=== PATIENT | female | born 1995 | race African-American/Black ===

== ENCOUNTER 2020-02-18 19:51 | Inpatient (IN) | payer OTHER ==
[~2020-02-18] VITALS: Ht 160 cm; Wt 90.3 kg
[2020-02-18] MEDS ORDERED: IBUPROFEN 600MG TABLET PO STA (21:24)
[2020-02-18] MEDS ORDERED: ACETAMINOPHEN 325MG TABLET PO STA (21:24)
[2020-02-18] MEDS ORDERED: CEFTRIAXONE 1 G PREMIX 50 ML IV ONE (22:45)
[2020-02-18] MEDS ORDERED: AZITHROMYCIN 500 MG in DEXT 5% WATER 250 ML IV ONE (22:45)
[2020-02-18 22:59] LABS: BASOPHILS % 0.4 % (0.0-2.0); EOSINOPHILS % 0.2 % (0.0-5.0); HEMATOCRIT. 31.1 % (36.0-48.0); HEMOGLOBIN. 10.2 g/dL (12.0-16.0); LYMPHOCYTES % 12.6 % (20.0-50.0); MEAN CORPUSCULAR HEMOGLOBIN 27.1 pg (28.0-32.0); MEAN CORPUSCULAR VOLUME 82.6 fL (81.0-99.0); MEAN PLATELET VOLUME 9.4 fl (7.4-10.4); MONOCYTES % 6.7 % (2.0-8.0); NEUTROPHILS % 80.1 % (40.0-76.0); PLATELET 207 x1000/uL (130-400); RED BLOOD CELL COUNT 3.76 mill/uL (4.2-5.4); RED CELL DISTRIBUTION WIDTH 16.4 % (11.6-14.6)
[2020-02-18 23:02] LABS: CHLORIDE 108 mEq/L (98-107)
[2020-02-18 23:06] LABS: PARTIAL THROMBOPLASTIN TIME 23.1 sec (23.4-31.0); PROTHROMBIN TIME 10.1 sec (9.6-11.0)
[2020-02-18 23:13] LABS: HCG SCREEN NEGATIVE
[2020-02-19] MEDS ORDERED: IOHEXOL-350 100 ML BOTTLE ONE (00:12)
[2020-02-19] MEDS ORDERED: ENOXAPARIN 100MG/ML SYR SUBCUT ONE (00:15)
[2020-02-19 03:25] LABS: CLARITY URINE CLEAR (CLEAR); COLOR URINE YELLOW (YELLOW); KETONES URINE NEGATIVE (NEGATIVE); LEUKOCYTE ESTERASE URINE NEGATIVE (NEGATIVE); NITRITE URINE NEGATIVE (NEGATIVE); OCCULT BLOOD URINE 3+ (NEGATIVE); PH URINE 5.5 (4.5-8.0); PROTEIN URINE 2+ (NEGATIVE); SPECIFIC GRAVITY URINE 1.053 (1.005-1.030); UROBILINOGEN URINE 0.2 E.U./dL (0.2-1.0)
[2020-02-19 08:45] VITALS: BP 135/86
[2020-02-19 09:00] VITALS: BP 135/86
[2020-02-19] MEDS ORDERED: XAR15 MT (10:31)
[2020-02-19] MEDS ORDERED: P50 MT (10:31)
[2020-02-19 12:00] VITALS: BP 128/79
[2020-02-19] MEDS ORDERED: ONDANSETRON HCL 4MG/2ML INJ IV PRN (14:00)
[2020-02-19] MEDS ORDERED: HYDROCODONE/ACETAMINOPHEN 5/325MG TABLET PO PRN (14:00)
[2020-02-19] MEDS ORDERED: DOCUSATE SODIUM 100MG CAPSULE PO PRN (14:00)
[2020-02-19] MEDS ORDERED: LORAZEPAM 0.5MG TABLET PO PRN (14:00)
[2020-02-19] MEDS ORDERED: GUAIFENESIN 200MG/10ML SUGAR FREE UDC PO PRN (14:00)
[2020-02-19] MEDS ORDERED: ACETAMINOPHEN 325MG TABLET PO PRN (14:00)
[2020-02-19 16:00] VITALS: BP 151/100
[2020-02-19] MEDS ORDERED: ALBUTEROL 6.7GM HFA INHALER ORI PRN (16:00)
[2020-02-19] MEDS ORDERED: CEFTRIAXONE 1,000 MG in DEXTROSE 5% WATER 50 ML IV SCH (18:00)
[2020-02-19] MEDS: RIVAROXABAN 20 MG TABLET PO SCH (18:57)
[2020-02-19] MEDS: METHYLPREDNISOLONE SOD SUCC 40 MG/ML VIAL IV SCH ×2 (18:57→23:40)
[2020-02-19 20:00] VITALS: BP 148/107
[2020-02-19] MEDS ORDERED: CEFTRIAXONE 1 G PREMIX 50 ML IV SCH (23:00)
[2020-02-19] MEDS: CLONIDINE 0.1MG TABLET PO PRN (23:39)
[2020-02-20] VITALS: BP 154/101
[2020-02-20] MEDS ORDERED: AZITHROMYCIN 500 MG in DEXT 5% WATER 250 ML IV SCH ×2
[2020-02-20 04:00] VITALS: BP 126/90
[2020-02-20 08:00] VITALS: BP 138/78
[2020-02-20 08:27] LABS: CHLORIDE 107 mEq/L (98-107)
[2020-02-20 08:37] LABS: HEMATOCRIT. 30.8 % (36.0-48.0); HEMOGLOBIN. 10.3 g/dL (12.0-16.0); MEAN CORPUSCULAR HEMOGLOBIN 27.4 pg (28.0-32.0); MEAN PLATELET VOLUME 9.2 fl (7.4-10.4); PLATELET 224 x1000/uL (130-400); RED BLOOD CELL COUNT 3.75 mill/uL (4.2-5.4); RED CELL DISTRIBUTION WIDTH 16.2 % (11.6-14.6)
[2020-02-20] MEDS: METHYLPREDNISOLONE SOD SUCC 40 MG/ML VIAL IV SCH ×2 (09:50→18:21)
[2020-02-20 12:00] VITALS: BP 148/99
[2020-02-20 14:00] VITALS: BP 134/69
[2020-02-20 15:45] LABS: PLATELET ESTIMATE NORMAL
[2020-02-20] MEDS: FUROSEMIDE 20MG/2ML VIAL IVP SCH (18:21)
[2020-02-20] MEDS: RIVAROXABAN 20 MG TABLET PO SCH (18:23)
[2020-02-20 20:00] VITALS: BP 152/84
[2020-02-20] MEDS: FLUTICASONE PROPIONATE 50MCG/SPRAY BOTTLE BOTHNSTRLS SCH (21:24)
[2020-02-20] MEDS ORDERED: METHOTREXATE SODIUM 2 . 5MG TABLET PO SCH (22:30)
[2020-02-20] MEDS ORDERED: GABAPENTIN 300MG CAPSULE PO SCH (22:30)
[2020-02-20] MEDS: CELECOXIB 200MG CAPSULE PO SCH (22:33)
[2020-02-20] MEDS: HYDROXYCHLOROQUINE SULFATE 200MG TABLET PO SCH (22:34)
[2020-02-20] MEDS: PREGABALIN 75MG CAPSULE PO SCH (22:34)
[2020-02-21] VITALS: BP 168/93
[2020-02-21] MEDS: CLONIDINE 0.1MG TABLET PO PRN (00:49)
[2020-02-21 01:00] VITALS: BP 135/74
[2020-02-21] MEDS: IPRATROPIUM/ALBUTEROL 0.5-3(2.5)MG/3ML NEB HHN SCH ×3 (01:28→14:43)
[2020-02-21 04:00] VITALS: BP 115/81
[2020-02-21 07:29] LABS: HEMATOCRIT. 32.8 % (36.0-48.0); HEMOGLOBIN. 10.8 g/dL (12.0-16.0); MEAN CORPUSCULAR HEMOGLOBIN 27.1 pg (28.0-32.0); MEAN CORPUSCULAR VOLUME 82.2 fL (81.0-99.0); MEAN PLATELET VOLUME 9.4 fl (7.4-10.4); PLATELET 267 x1000/uL (130-400); RED CELL DISTRIBUTION WIDTH 16.1 % (11.6-14.6)
[2020-02-21 07:47] LABS: CHLORIDE 105 mEq/L (98-107)
[2020-02-21 07:58] LABS: CREATINE KINASE 11 IU/L (26-192); T4 FREE 1.05 ng/dL (0.76-1.46)
[2020-02-21 08:00] VITALS: BP 135/92
[2020-02-21] MEDS ORDERED: FOLIC ACID 1MG TABLET PO SCH (09:00)
[2020-02-21] MEDS ORDERED: PREDNISONE 20MG TABLET PO SCH (09:00)
[2020-02-21] MEDS ORDERED: METHYLPREDNISOLONE SOD SUCC 40 MG/ML VIAL IV SCH (09:00)
[2020-02-21] MEDS ORDERED: DULOXETINE HCL 30MG DR CAPSULE PO SCH (09:00)
[2020-02-21] MEDS: HYDROXYCHLOROQUINE SULFATE 200MG TABLET PO SCH (09:14)
[2020-02-21] MEDS: PREGABALIN 75MG CAPSULE PO SCH (09:14)
[2020-02-21] MEDS: FLUTICASONE PROPIONATE 50MCG/SPRAY BOTTLE BOTHNSTRLS SCH (09:15)
[2020-02-21] MEDS: METHOTREXATE SODIUM 2 . 5MG TABLET PO SCH ×2 (09:15→12:40)
[2020-02-21] MEDS: CELECOXIB 200MG CAPSULE PO SCH (09:16)
[2020-02-21] MEDS: FUROSEMIDE 20MG/2ML VIAL IVP SCH (09:16)
[2020-02-21] MEDS ORDERED: AMLODIPINE 2.5MG TABLET PO SCH (10:45)
[2020-02-21] MEDS ORDERED: METH2.5T MT (11:57)
[2020-02-21] MEDS ORDERED: DULO30CA2 PO (11:57)
[2020-02-21] MEDS ORDERED: PREG75CA PO (11:57)
[2020-02-21] MEDS ORDERED: P20 PO (11:57)
[2020-02-21] MEDS ORDERED: FURO20TA4 MT (11:57)
[2020-02-21] MEDS ORDERED: HYDR200T35 PO (11:57)
[2020-02-21] MEDS ORDERED: AMLO2.5T45 PO (11:57)
[2020-02-21] MEDS ORDERED: FOLI-43 PO (11:57)
[2020-02-21 12:00] VITALS: BP 147/87
[2020-02-21 12:12] VITALS: BP 147/87
[2020-02-21 17:35] LABS: PLATELET ESTIMATE NORMAL
[2020-02-22 09:09] LABS: G6PD RBC 3.98 x10E6/uL (3.77-5.28)
[2020-02-22 15:08] LABS: ANTI-DNA DOUBLE STRANDED QUANT > 300 IU/mL (0-9); RNP ANTIBODY 0.4 AI (0.0-0.9); SMITH ANTIBODY 2.7 AI (0.0-0.9)
[2020-02-22 17:10] LABS: G6PD QUANTITATIVE 233 (146-376)
[2020-02-23 17:07] LABS: ALDOLASE 6.4 U/L (3.3-10.3); ANGIOTENSION CONVERTING ENZYME 38 U/L (14-82)
[2020-02-23 19:11] LABS: ANTI-CARDIOLIPIN AB IGG 15 GPL U/mL (0-14); ANTI-CARDIOLIPIN AB IGM 14 MPL U/mL (0-12)
[2020-02-24 18:15] LABS: ANTI-MYELOPEROXIDASE AB < 9.0 U/mL (0.0-9.0); ANTI-PROTEINASE 3 ABS < 3.5 U/mL (0.0-3.5)
[2020-02-25 06:10] LABS: DRVVT LA 113.6 sec (0.0-47.0); DRVVT MIX LA 78.5 sec (0.0-47.0); HEXAGONAL PHASE PHOSPHOLIPID 30 sec (0-11); LUPUS ANTICOAG INTERPRETATION Comment: (.); PTT-LA MIX 74.4 sec (0.0-48.9)
[2020-02-25 10:06] LABS: GLOMERULAR BASEMENT MEMB AB 5 units (0-20)
[2020-02-26 15:06] LABS: ANA HOMOGENEOUS PATTERN >1:1280 (.); ANA IFA Positive (.); ATYPICAL P-ANCA <1:20 titer (Neg:<1:20); CYTOPLASMIC C-ANCA <1:20 titer (Neg:<1:20)
== END 2020-02-21 15:25 | disposition home or self-care (01) | DRG 720 ==
LOC: ER 19:51 → 7WST 02-19 00:10 → ENRESERV 02-19 07:38 → ER 02-19 08:02 → 8WST 02-19 23:10
PROVIDERS: ADMIT Internal Medicine; ATTEND Internal Medicine
DX: A41.9 Sepsis, unspecified organism (principal); I11.9 Hypertensive heart disease without heart failure; D72.810 Lymphocytopenia; E46 Unspecified protein-calorie malnutrition; E66.9 Obesity, unspecified; D64.9 Anemia, unspecified; E87.70 Fluid overload, unspecified; H66.93 Otitis media, unspecified, bilateral; I25.10 Atherosclerotic heart disease of native coronary artery without angina pectoris; I31.3 Pericardial effusion (noninflammatory); J18.9 Pneumonia, unspecified organism; J90 Pleural effusion, not elsewhere classified; J96.00 Acute respiratory failure, unspecified whether with hypoxia or hypercapnia; K80.20 Calculus of gallbladder without cholecystitis without obstruction; M32.9 Systemic lupus erythematosus, unspecified; R31.9 Hematuria, unspecified; Z20.828 Contact with and (suspected) exposure to other viral communicable diseases; M79.7 Fibromyalgia; I16.0 Hypertensive urgency; M13.0 Polyarthritis, unspecified; Z79.01 Long term (current) use of anticoagulants; Z86.711 Personal history of pulmonary embolism; Z86.718 Personal history of other venous thrombosis and embolism; Z87.441 Personal history of nephrotic syndrome; Z79.1 Long term (current) use of non-steroidal anti-inflammatories (NSAID); Z79.899 Other long term (current) drug therapy; Z68.35 Body mass index [BMI] 35.0-35.9, adult; R80.9 Proteinuria, unspecified; R59.0 Localized enlarged lymph nodes
CPT/HCPCS: 36415; 71045; 71275; 80048; 80053; 81003; 82085; 82164; 82550; 82955; 83520; 83605; 83880; 84134; 84439; 84484; 84550; 84703; 85025; 85041; 85379; 85613; 85651; 85732; 86147; 86160; 86225; 86235; 86256; 86592; 86780; 87635; 93005; 93306; 94640; 99285; J0456; J0696; J1650; J1940; J2920; J7060; J7512; J8610; Q9967

== ENCOUNTER 2020-08-14 16:05 | Inpatient (IN) | payer MEDICAID, OTHER ==
[~2020-08-14] VITALS: Ht 160 cm; Wt 96.6 kg
[~2020-08-14 16:05] MED LIST: AMLO2.5T45 PO; DULO30CA2 PO; FOLI-43 PO; FURO20TA4 MT; HYDR200T35 PO; METH2.5T MT; P20 PO; PREG75CA PO; XAR15 MT
[2020-08-14] MEDS ORDERED: MORPHINE SULFATE 4 MG/ML CPJ (NOT FOR IM USE) IV STA ×2 (17:30→18:51)
[2020-08-14] MEDS ORDERED: ONDANSETRON HCL 4MG/2ML INJ IV STA ×2 (17:30→18:51)
[2020-08-14] MEDS ORDERED: ASPIRIN 81MG TABLET PO ONE (17:30)
[2020-08-14] MEDS: NITROGLYCERIN 0.4MG TABLET SL SL PRN ×3 (17:54→18:22)
[2020-08-14 18:15] LABS: BASOPHILS % 1.2 % (0.0-2.0); EOSINOPHILS % 1.4 % (0.0-5.0); HEMATOCRIT. 31.5 % (36.0-48.0); HEMOGLOBIN. 10.3 g/dL (12.0-16.0); LYMPHOCYTES % 11.8 % (20.0-50.0); MEAN CORPUSCULAR HEMOGLOBIN 27.1 pg (28.0-32.0); MEAN CORPUSCULAR VOLUME 82.7 fL (81.0-99.0); MEAN PLATELET VOLUME 9.1 fl (7.4-10.4); MONOCYTES % 8.5 % (2.0-8.0); NEUTROPHILS % 77.1 % (40.0-76.0); PLATELET 165 x1000/uL (130-400); RED CELL DISTRIBUTION WIDTH 16.3 % (11.6-14.6)
[2020-08-14 18:20] LABS: CHLORIDE 111 mEq/L (98-107)
[2020-08-14 18:24] LABS: INR 0.9; PARTIAL THROMBOPLASTIN TIME 23.6 sec (23.4-31.0); PROTHROMBIN TIME 9.9 sec (9.6-11.0)
[2020-08-14] MEDS ORDERED: CLONIDINE 0.2MG TABLET PO ONE (20:15)
[2020-08-14] MEDS ORDERED: IOHEXOL-350 100 ML BOTTLE ONE (22:18)
[2020-08-14 22:55] VITALS: BP 157/110
[2020-08-14 23:10] VITALS: BP 159/107
[2020-08-14 23:15] VITALS: BP 159/107
[2020-08-15] MEDS ORDERED: METOPROLOL TARTRATE 25MG TABLET PO SCH (01:00)
[2020-08-15] MEDS: MORPHINE SULFATE 2 MG/ML CPJ (NOT FOR IM USE) IV PRN ×2 (01:17→05:55)
[2020-08-15 02:15] VITALS: BP 148/96
[2020-08-15 04:00] VITALS: BP 151/100
[2020-08-15 06:09] LABS: HEMATOCRIT 32.6 % (36.0-48.0); HEMOGLOBIN 10.6 g/dL (12.0-16.0); MEAN CORPUSCULAR HEMOGLOBIN 27.2 pg (28.0-32.0); MEAN CORPUSCULAR VOLUME 83.8 fL (81.0-99.0); PLATELET 175 x1000/uL (130-400); RED BLOOD CELL COUNT 3.89 mill/uL (4.2-5.4); RED CELL DISTRIBUTION WIDTH 16.4 % (11.6-14.6)
[2020-08-15 06:24] LABS: CHLORIDE 106 mEq/L (98-107)
[2020-08-15 08:00] VITALS: BP 153/104
[2020-08-15] MEDS ORDERED: TRAMADOL 50MG TABLET PO PRN (08:15)
[2020-08-15] MEDS ORDERED: AMLODIPINE 5MG TABLET PO SCH (09:00)
[2020-08-15] MEDS ORDERED: PREDNISONE 20MG TABLET PO SCH (09:00)
[2020-08-15] MEDS ORDERED: LOSARTAN POTASSIUM 50 MG TABLET PO SCH (09:00)
[2020-08-15 09:26] LABS: LDL CHOLESTEROL 107 mg/dL (5-100)
[2020-08-15 09:27] LABS: HDL CHOLESTEROL 45 mg/dL (40-59)
[2020-08-15] MEDS: FOLIC ACID 1MG TABLET PO SCH (09:41)
[2020-08-15] MEDS: AMLODIPINE 5MG TABLET PO SCH ×2 (09:41→20:58)
[2020-08-15] MEDS: KETOROLAC 30MG/ML VIAL IV PRN (11:19)
[2020-08-15 12:25] VITALS: BP 169/123
[2020-08-15] MEDS ORDERED: HYDRALAZINE HCL 100MG TABLET PO SCH ×2 (13:00→22:00)
[2020-08-15] MEDS: METHYLPREDNISOLONE SOD SUCC 40 MG/ML VIAL IV SCH ×2 (13:08→20:58)
[2020-08-15] MEDS ORDERED: ALPRAZOLAM 0.25 MG TABLET PO PRN (14:00)
[2020-08-15] MEDS ORDERED: ALPRAZOLAM 0.5 MG TABLET PO NR (14:15)
[2020-08-15] MEDS: CLONIDINE 0.2MG TABLET PO SCH ×2 (14:24→22:03)
[2020-08-15] MEDS: FUROSEMIDE 40MG/4ML VIAL IVP SCH (14:24)
[2020-08-15 15:38] VITALS: BP 120/64
[2020-08-15] MEDS ORDERED: RIVAROXABAN 20 MG TABLET PO SCH (17:00)
[2020-08-15 20:00] VITALS: BP 170/104
[2020-08-15] MEDS: METOPROLOL TARTRATE 100MG TABLET PO SCH (20:58)
[2020-08-15] MEDS: ZOLPIDEM TARTRATE 5MG TABLET PO PRN (22:03)
[2020-08-16] VITALS: BP 143/92
[2020-08-16] MEDS ORDERED: ALPRAZOLAM 0.5 MG TABLET PO PRN (02:00)
[2020-08-16 04:00] VITALS: BP 141/70
[2020-08-16] MEDS: METHYLPREDNISOLONE SOD SUCC 40 MG/ML VIAL IV SCH ×2 (05:22→13:42)
[2020-08-16] MEDS: CLONIDINE 0.2MG TABLET PO SCH ×3 (05:23→21:54)
[2020-08-16 08:00] VITALS: BP 134/86
[2020-08-16 08:28] LABS: BASOPHILS % 0.5 % (0.0-2.0); HEMATOCRIT. 35.8 % (36.0-48.0); HEMOGLOBIN. 11.5 g/dL (12.0-16.0); MEAN CORPUSCULAR HEMOGLOBIN 26.7 pg (28.0-32.0); MEAN CORPUSCULAR VOLUME 83.3 fL (81.0-99.0); MEAN PLATELET VOLUME 9.5 fl (7.4-10.4); MONOCYTES % 3.9 % (2.0-8.0); NEUTROPHILS % 79.6 % (40.0-76.0); PLATELET 216 x1000/uL (130-400)
[2020-08-16] MEDS: FUROSEMIDE 40MG/4ML VIAL IVP SCH (09:05)
[2020-08-16] MEDS: METOPROLOL TARTRATE 100MG TABLET PO SCH ×2 (09:05→20:36)
[2020-08-16] MEDS: AMLODIPINE 5MG TABLET PO SCH ×2 (09:05→20:36)
[2020-08-16] MEDS: LOSARTAN POTASSIUM 100 MG TABLET PO SCH (09:05)
[2020-08-16] MEDS: FOLIC ACID 1MG TABLET PO SCH (09:06)
[2020-08-16 12:00] VITALS: BP 112/68
[2020-08-16 13:42] LABS: CLARITY URINE CLEAR (CLEAR); COLOR URINE YELLOW (YELLOW); KETONES URINE NEGATIVE (NEGATIVE); LEUKOCYTE ESTERASE URINE 1+ (NEGATIVE); NITRITE URINE NEGATIVE (NEGATIVE); OCCULT BLOOD URINE 1+ (NEGATIVE); PROTEIN URINE 3+ (NEGATIVE); SPECIFIC GRAVITY URINE 1.013 (1.005-1.030); UROBILINOGEN URINE 0.2 E.U./dL (0.2-1.0)
[2020-08-16 14:14] LABS: *BENZODIAZEPINES SCREEN URINE NEGATIVE (NEGATIVE); *COCAINE SCREEN URINE NEGATIVE (NEGATIVE)
[2020-08-16 14:15] LABS: *AMPHETAMINES SCREEN URINE NEGATIVE (NEGATIVE); *BARBITURATES SCREEN URINE NEGATIVE (NEGATIVE); METHADONE URINE SCREEN NEGATIVE (NEGATIVE); PHENCYCLIDINE URINE SCREEN NEGATIVE (NEGATIVE)
[2020-08-16 14:18] LABS: CANNABINOID URINE SCREEN PRESUMTIVE POSITIVE (NEGATIVE); OPIATES URINE SCREEN PRESUMTIVE POSITIVE (NEGATIVE)
[2020-08-16 16:00] VITALS: BP 117/81
[2020-08-16] MEDS: METHYLPREDNISOLONE SOD SUCC 125 MG/2 ML VIAL IV SCH ×2 (16:15→21:54)
[2020-08-16] MEDS: HYDROCODONE/ACETAMINOPHEN 5/325MG TABLET PO PRN (19:40)
[2020-08-16 20:00] VITALS: BP 119/80
[2020-08-16] MEDS: ZOLPIDEM TARTRATE 5MG TABLET PO PRN (20:36)
[2020-08-16] MEDS: PREGABALIN 75MG CAPSULE PO SCH (21:56)
[2020-08-17] VITALS: BP 113/81
[2020-08-17 04:00] VITALS: BP 118/80
[2020-08-17] MEDS: METHYLPREDNISOLONE SOD SUCC 125 MG/2 ML VIAL IV SCH ×2 (05:07→13:28)
[2020-08-17] MEDS: CLONIDINE 0.2MG TABLET PO SCH ×2 (05:08→13:27)
[2020-08-17] MEDS: HYDROCODONE/ACETAMINOPHEN 5/325MG TABLET PO PRN (05:27)
[2020-08-17 08:00] VITALS: BP 116/72
[2020-08-17] MEDS: LOSARTAN POTASSIUM 100 MG TABLET PO SCH (08:48)
[2020-08-17] MEDS: PREGABALIN 75MG CAPSULE PO SCH (08:49)
[2020-08-17] MEDS: FOLIC ACID 1MG TABLET PO SCH (08:49)
[2020-08-17] MEDS: AMLODIPINE 5MG TABLET PO SCH (08:49)
[2020-08-17] MEDS: METOPROLOL TARTRATE 100MG TABLET PO SCH (08:50)
[2020-08-17] MEDS ORDERED: FUROSEMIDE 20MG/2ML VIAL IVP SCH (09:00)
[2020-08-17] MEDS ORDERED: DULOXETINE HCL 60MG DR CAPSULE PO SCH (09:00)
[2020-08-17] MEDS: KETOROLAC 30MG/ML VIAL IV PRN (10:44)
[2020-08-17 12:00] VITALS: BP 116/70
[2020-08-17] MEDS ORDERED: P20 MT (18:26)
[2020-08-17] MEDS ORDERED: METO100T16 PO (18:26)
[2020-08-17] MEDS ORDERED: LOSA100T3 PO (18:26)
[2020-08-17] MEDS ORDERED: CLON0.2T12 PO (18:26)
[2020-08-19 13:06] LABS: ANTI-DNA DOUBLE STRANDED QUANT > 300 IU/mL (0-9)
== END 2020-08-17 14:10 | disposition left against medical advice (07) | DRG 346 ==
LOC: ER 16:05 → 5WST 20:59 → ENRESERV 21:57 → 5WST 08-15 07:37
PROVIDERS: ADMIT Internal Medicine; ATTEND Internal Medicine
DX: M32.9 Systemic lupus erythematosus, unspecified (principal); E43 Unspecified severe protein-calorie malnutrition; E87.8 Other disorders of electrolyte and fluid balance, not elsewhere classified; I16.0 Hypertensive urgency; D64.9 Anemia, unspecified; I31.3 Pericardial effusion (noninflammatory); K80.20 Calculus of gallbladder without cholecystitis without obstruction; D72.810 Lymphocytopenia; I77.6 Arteritis, unspecified; M79.7 Fibromyalgia; Z79.01 Long term (current) use of anticoagulants; Z86.711 Personal history of pulmonary embolism; Z87.441 Personal history of nephrotic syndrome; M13.0 Polyarthritis, unspecified; I25.10 Atherosclerotic heart disease of native coronary artery without angina pectoris; I11.9 Hypertensive heart disease without heart failure; F41.9 Anxiety disorder, unspecified; R80.9 Proteinuria, unspecified; N28.9 Disorder of kidney and ureter, unspecified; E85.0 Non-neuropathic heredofamilial amyloidosis; Z68.37 Body mass index [BMI] 37.0-37.9, adult; Z53.29 Procedure and treatment not carried out because of patient's decision for other reasons
CPT/HCPCS: 36415; 71045; 71275; 74174; 80048; 80053; 80061; 80305; 81003; 82962; 83880; 84443; 84484; 84550; 85025; 85027; 85651; 86160; 86225; 86256; 93005; 93306; 96374; 99285; C1893; J1885; J1940; J2270; J2405; J2920; J2930; J7512; Q9967

== ENCOUNTER 2022-01-26 04:58 | Emergency (ER) | payer MEDICAID, OTHER ==
[~2022-01-26] VITALS: Ht 162.6 cm; Wt 100.0 kg
[~2022-01-26 04:58] MED LIST changes: +CLON0.2T12 PO; +LOSA100T3 PO; +METO100T16 PO; +P20 MT
[2022-01-26] MEDS ORDERED: ONDANSETRON 4MG ODT PO ONE (06:15)
[2022-01-26] MEDS ORDERED: HYDROCODONE/ACETAMINOPHEN 5/325MG TABLET PO ONE (06:15)
[2022-01-26] MEDS ORDERED: HYDR-4001 MT (06:44)
[2022-01-26 07:10] VITALS: BP 164/100
== END 2022-01-26 07:11 | disposition home or self-care (01) ==
LOC: ER 04:58
DX: S52.132A Displaced fracture of neck of left radius, initial encounter for closed fracture (principal); S40.022A Contusion of left upper arm, initial encounter; N19 Unspecified kidney failure; I10 Essential (primary) hypertension; Z79.899 Other long term (current) drug therapy; X58.XXXA Exposure to other specified factors, initial encounter; Y93.89 Activity, other specified; Y92.89 Other specified places as the place of occurrence of the external cause; Y99.8 Other external cause status
CPT/HCPCS: 29105; 73080; 73090; 73110; 73130; 99284; Q0162